=== PATIENT | female | born 1955 | race Caucasian/White ===

== ENCOUNTER 2019-02-17 10:30 | Emergency (ER) | payer BC ==
[~2019-02-17] VITALS: Ht 170.2 cm; Wt 81.2 kg
[2019-02-17] MEDS ORDERED: IPRATROPIUM 0.5MG/ALBUTEROL 2.5MG INH SOL UD 3ML (DUONEB)(J7620) NEB ONE (11:15)
[2019-02-17] MEDS ORDERED: ALBUTEROL SULFATE 2.5 MG/0.5 ML INH NEB SOLN INH ONE (11:15)
[2019-02-17] MEDS ORDERED: GABA600T4 PO (11:41)
[2019-02-17] MEDS ORDERED: VALS1TAB49 PO (11:41)
[2019-02-17] MEDS ORDERED: CYMB1CAP5 PO (11:41)
--- NOTE | 2019-02-17 11:42 | REP ---
Clinical: Cough and wheezing with shortness of breath. Technique: PA and lateral. Comparison: None. Findings: Mediastinum and cardiac silhouette are within normal limits. Chronic scoliosis noted. The lung lee are clear without acute consolidation, effusion, or pneumothorax. Impression: No focal consolidation. Electronically Signed by Derek Smith MD 02/17/2019 11:34 A
[2019-02-17 11:57] VITALS: BP 115/69
[2019-02-17] MEDS ORDERED: BENZ200C70 PO (11:58)
[2019-02-17] MEDS ORDERED: PRED20TA PO (11:58)
[2019-02-17] MEDS ORDERED: MUCI600T31 PO (11:58)
[2019-02-17] MEDS ORDERED: predniSONE 20 MG TAB PO ONE (12:00)
== END 2019-02-17 12:06 | disposition home or self-care (01) ==
LOC: M ED 10:30
DX: J20.9 Acute bronchitis, unspecified (principal); J45.909 Unspecified asthma, uncomplicated; I10 Essential (primary) hypertension; Z87.891 Personal history of nicotine dependence; Z88.5 Allergy status to narcotic agent; Z88.6 Allergy status to analgesic agent; Z79.899 Other long term (current) drug therapy